=== PATIENT | male | born 1955 | race African-American/Black ===

== ENCOUNTER 2016-06-04 10:00 | Outpatient (RCR) | payer BC | END 2016-06-29 | disposition home or self-care (01) | LOC: WCC 10:00 | DX: E11.621 Type 2 diabetes mellitus with foot ulcer (principal); L97.523 Non-pressure chronic ulcer of other part of left foot with necrosis of muscle; I10 Essential (primary) hypertension; I50.9 Heart failure, unspecified; I73.9 Peripheral vascular disease, unspecified; J45.909 Unspecified asthma, uncomplicated; Z79.82 Long term (current) use of aspirin | CPT/HCPCS: 82962; G0277; G0463; 99204 ==

== ENCOUNTER → 2016-06-04 | Outpatient (CLI) | payer BC ==
--- NOTE | 2016-06-04 12:39 | Diagnostic Imaging Report ---
Indication: Cough Comparison: None 2 views of the chest obtained. No definite infiltrate or pulmonary vascular congestion identified. The heart is enlarged there is a pacemaker present. Single lead projects over the right ventricle. The bones are osteopenic. Impression: No acute disease
== END | disposition home or self-care (01) ==
LOC: RAD 11:59
DX: R05 Cough (principal)
CPT/HCPCS: 71020

== ENCOUNTER 2016-07-02 13:00 | Outpatient (RCR) | payer BC | END 2016-07-29 | disposition home or self-care (01) | LOC: WCC 13:00 | DX: L97.523 Non-pressure chronic ulcer of other part of left foot with necrosis of muscle (principal); E11.621 Type 2 diabetes mellitus with foot ulcer; Z91.018 Allergy to other foods; Z95.0 Presence of cardiac pacemaker; I10 Essential (primary) hypertension; I50.9 Heart failure, unspecified; I73.9 Peripheral vascular disease, unspecified; J45.909 Unspecified asthma, uncomplicated; Z79.4 Long term (current) use of insulin; Z79.82 Long term (current) use of aspirin | CPT/HCPCS: 82962; G0277; G0463 ==

== ENCOUNTER 2016-07-31 14:36 | Outpatient (RCR) | payer BC | END 2016-08-29 | disposition home or self-care (01) | LOC: WCC 14:36 | DX: L97.523 Non-pressure chronic ulcer of other part of left foot with necrosis of muscle (principal); E11.621 Type 2 diabetes mellitus with foot ulcer; I10 Essential (primary) hypertension; I50.9 Heart failure, unspecified; Z95.0 Presence of cardiac pacemaker; Z79.82 Long term (current) use of aspirin; Z79.4 Long term (current) use of insulin | CPT/HCPCS: 82962; G0463 ==

== ENCOUNTER 2017-09-10 07:28 | Day surgery (SDC) | payer MEDICARE, BC ==
[2017-09-10] VITALS (7 sets, daily range): BP systolic 140–146; BP diastolic 78–96
[~2017-09-10] VITALS: Ht 185.4 cm; Wt 105.2 kg
[~2017-09-10 07:28] MED LIST: Proparacaine 0.5% Opth Soln 15ml LEFT EYE SCH
[2017-09-10] MEDS ORDERED: Tropicamide 1% Opth 15ml Soln ONE (08:21)
[2017-09-10] MEDS ORDERED: Phenylephrine 2.5% Op 2ml Soln ONE (08:21)
[2017-09-10] MEDS ORDERED: Cyclopentolate 1% Opth Sol 2ml ONE (08:21)
[2017-09-10] MEDS ORDERED: Proparacaine 0.5% Opth Soln 15ml ONE (08:22)
[2017-09-10] MEDS: Cyclopentolate 1% Opth Sol 2ml LEFT EYE SCH ×3 (08:28→08:49)
[2017-09-10] MEDS: Phenylephrine 2.5% Op 2ml Soln LEFT EYE SCH ×3 (08:29→08:49)
[2017-09-10] MEDS: Tropicamide 1% Opth 15ml Soln LEFT EYE SCH ×3 (08:29→08:49)
[2017-09-10] MEDS ORDERED: CARVEDILOL6.25 MG ORAL (09:07)
[2017-09-10] MEDS ORDERED: METOLAZONE2.5 MG PO (09:07)
[2017-09-10] MEDS ORDERED: TRUSOPT10 ML BOTH EYES (09:07)
[2017-09-10] MEDS ORDERED: VITAMIN D22000 UNIT PO (09:07)
[2017-09-10] MEDS ORDERED: PROVENTIL HFA6.7 G1 IH (09:07)
[2017-09-10] MEDS ORDERED: LANTUS SOL100 UNIT/1 SUBQ (09:07)
[2017-09-10] MEDS ORDERED: PROAIR HFA8.5 GM INH (09:07)
[2017-09-10] MEDS ORDERED: ATORVASTATIN CA80 MG ORAL (09:07)
[2017-09-10] MEDS ORDERED: AMLODIPINE BESYL5 MG ORAL (09:07)
[2017-09-10] MEDS ORDERED: BUMETANIDE1 MG ORAL (09:07)
[2017-09-10] MEDS ORDERED: GABAPENTIN300 MG ORAL (09:07)
[2017-09-10] MEDS ORDERED: EPINEPHrine 1mg/1ml Amp ONE (09:56)
[2017-09-10] MEDS ORDERED: Lidocaine 2% MPF 5ml Vial INJ ONE (09:56)
--- NOTE | 2017-09-10 09:56 | Pre-Procedure Note/Attestation ---
Pre-Procedure Note/Attestation Complete Prior to Procedure Planned Procedure: left Procedure Narrative: PDR/VH/TRD/Cataract OS planned for surgery Indications for Procedure Pre-Operative Diagnosis: PDR/VH/TRD/Cataract OS Attestation I attest that I discussed the nature of the procedure; its benefits; risks and complications; and alternatives (and the risks and benefits of such alternatives ), prior to the procedure, with the patient (or the patient's legal technical service representative). I attest that, if there was a reasonable possibility of needing a blood transfusion, the patient (or the patient's legal technical service representative) was given the [facility] of Health Services standardized written summary, pursuant to the Brian Jack Blood Safety Act ([place] Health and Safety Code # 1645, as amended). I attest that I re-evaluated the patient just prior to the surgery and that there has been no change in the patient's H&P, except as documented below: Derek Duenas M.D., MD Sep 10, 2017 09:56
[2017-09-10] MEDS ORDERED: Dexamethasone 4mg/ml vial ONE ×2 (09:57→10:44)
[2017-09-10] MEDS ORDERED: BSS 15ml BTL ONE ×2 (09:57→10:38)
[2017-09-10] MEDS ORDERED: Maxitrol Opth Oint 3.5gm ONE (09:57)
[2017-09-10] MEDS ORDERED: Pred Forte 1% Opth Susp 1ml ONE (09:57)
[2017-09-10] MEDS ORDERED: Tetracaine 0.5% Opth 4ml Soln ONE (09:57)
[2017-09-10] MEDS ORDERED: BSS 500ml btl ONE ×2 (09:57→10:47)
[2017-09-10] MEDS ORDERED: Bupivacaine 0.75% 30ml vial INJ ONE (09:58)
--- NOTE | 2017-09-10 09:58 | Operative Note - PDOC ---
Operative Note Operative Note Chief Complaint: Vision loss OS Pre-op Diagnosis: PDR/VH/TRD/Cataract OS Procedure: PPV/MP/EL/AFE/SF6 Gas OS Post-op Diagnosis: Same Post-op Diagnosis: same as pre-op Surgeon: Henrique Anesthesia: local, MAC Specimen: none Complications: none Condition: stable Estimated Blood Loss: minimal Drains: none Implant(s) used?: Yes - Silicone oil Indications for Procedure Location: [facility] [place] Pre-operative Diagnosis: 1. PDR, ERM/TRD, VH, Cataract, LEFT EYE Post-operative Diagnosis: Same Procedure: Pars plana vitrectomy, ILM/membrane peel, endolaser, air-fluid exchange, silicone oil (1K cS), LEFT EYE Indications for the procedure: The patient has vision loss due ERM, VH, TRD and presents today for surgery after review of the risks, benefits, alternative and signing informed consent into the medical chart. Description of Procedure Procedure performed: The patient was met in the pre-operative area where informed consent was reviewed. The operative eye was verified, marked and dilated. The patient was transferred to the operative suite, where cardiopulmonary monitoring was established and peribulbar anesthetic was administered without complications. The eye was prepped and draped in sterile ophthalmic fashion. Under microscope visualization the 23 gauge infusion line was placed 4 millimeters inferotemporally. After visualization of the tip in the vitreous cavity, the infusion line was turned on. The superotemporal and superonasal cannulas were placed. Under BIOM visualization, peripheral and core vitrectomy was performed. There was notable vitreous traction involving the temporal, superior macula and nasal traction with elevation and detachment. As the vitreous hemorrhage was removed , the membranes were relaxed. Kenalog was used to stain the hyloid and PVD was induced over the disc; the areas of tractional detachment were trimmed. Hemostasis from areas of NVD/NVE was achieved by IOP elevation. Endolaser was them applied around the posterior areas of TRD and extended to the periphery under scleral depression. There was notable cataract present. The macula was stained with ICG and the ERM was removed with ILM forceps. Air fluid exchange was performed and further peripheral laser was applied. Inspection of the periphery revealed Inferotemporal break which was reinforced with laser. The eye maintained normal intraocular pressure. Silicone oil was then infused. Subconjunctival vancomycin and dexamethasone were administered. The lid speculum was removed. The eye was cleaned of prep and drape. Atropine drop and Maxitrol ointment was applied. A pressure patch was placed. The patient was turned over to the anesthesia team and transferred in stable condition to the PACU. Derek Duenas M.D., MD Sep 10, 2017 09:58
--- NOTE | 2017-09-10 10:07 | Anethesia Preoperative Eval ---
Anesthesia Pre-op PMH/ROS General Date of Evaluation: Sep 10, 2017 Time of Evaluation: 09:40 Anesthesiologist: ASA Score: ASA 4 Mallampati Score Class I : Soft palate, uvula, fauces, pillars visible Class II: Soft palate, uvula, fauces visible Class III: Soft palate, base of uvula visible Class IV: Only hard plate visible Mallampati Classification: Class III Surgeon: manan Diagnosis: vascular perliforation left eye Surgical Procedure: vitractomy, membrane peel, laser, gas injection left eye Anesthesia History: other - hypotension;.case cancelled during cervical spine surgery last year Allergies: Coded Allergies: LISINOPRIL (Verified Adverse Reaction, Severe, 09/10/17) COUGHING Medications: see eMAR Past Medical History Cardiovascular: Reports: HTN, CAD, other - chf, cardiomoypathy EF 25%; Denies: NM, valve dz, arrhythmia Pulmonary: Reports: asthma, RU; Denies: COPD, other Gastrointestinal/Genitourinary: Reports: GERD, CRI; Denies: ESRD, other Neurologic/Psychiatric: Reports: depression/anxiety; Denies: dementia, CVA, TIA, other Endocrine: Reports: DM; Denies: hypothyroidism, steroids, other HEENT: Reports: other - perliforative diabetes effecting left eye Musculoskeletal/Integumentary: Reports: OA Other: obesity PSxH Narrative: cervical spine Anesthesia Pre-op Phys. Exam Physician Exam Last Vital Signs Date Time Temp Pulse Resp B/P (MAP) Pulse Ox O2 Delivery O2 Flow Rate FiO2 09/10/17 08:43 97.5 77 16 144/89 97 Room Air 97.5 Constitutional: other - mild all body discomfort, breathing feel okay per patient Neurologic: other - uses walker to ambulate, unabt to flex/extend neck Cardiovascular: RRR Respiratory: CTA Gastrointestinal: other - distented Airway Exam Mallampati Score: Class IV MO: full ROM: limited Teeth: missing Dentures: no upper, no lower Anesthesia Pre-op A/P Risk Assessment & Plan Assessment: asa 4 Plan: mac Status Change Before Surgery: No Pre-Antibiotics Drug: none Leonela Preston M.D. Sep 10, 2017 10:07
[2017-09-10] MEDS ORDERED: Kenalog-40 1ml Vial ONE (10:08)
[2017-09-10] MEDS ORDERED: Acetylcholine Injection (OR) ONE (10:08)
[2017-09-10] MEDS ORDERED: Povidone-Iodine 5% opth solution ONE ×2 (10:18→10:44)
[2017-09-10] MEDS ORDERED: Goniosol 2.5% Opth Soln - 15ml ONE (10:36)
[2017-09-10] MEDS ORDERED: Indocyanine Green 25mg Inj INJ ONE (11:00)
[2017-09-10] MEDS ORDERED: Sodium Hyaluronate 10 mg/ml 0.85ml ONE (11:31)
--- NOTE | 2017-09-10 12:18 | Immediate Post-Op Evaluation ---
Immediate Post-Op Evalulation Immediate Post-Op Evalulation Procedure: Vitrectomy, membrane peel, endolaser, oil injection left eye Date of Evaluation: Sep 10, 2017 Time of Evaluation: 12:04 IV Fluids: NS 10ml Blood Products: 0 Estimated Blood Loss: 0 Urinary Output: 0 Blood Pressure Systolic: 146 Blood Pressure Diastolic: 89 Pulse Rate: 84 Respiratory Rate: 23 O2 Sat by Pulse Oximetry: 96 Temperature (Fahrenheit): 97.8 Nausea: No Vomiting: No Complications none Patient Status: awake, patent, none Hydration Status: adequate Drug: none Leonela Preston M.D. Sep 10, 2017 12:18
--- NOTE | 2017-09-10 13:42 | 48 Hour Post Anesthesia Eval ---
Post Anesthesia Evaluation Procedure: Vitrectomy, membrane peel, endolaser, oil injection left eye Date of Evaluation: Sep 10, 2017 Time of Evaluation: 12:40 Blood Pressure Systolic: 146 0: 78 Pulse Rate: 82 Respiratory Rate: 20 Temperature (Fahrenheit): 97.8 O2 Sat by Pulse Oximetry: 96 Airway: patent Nausea: No Vomiting: No Pain Intensity: 0 Hydration Status: adequate Mental Status/LOC: patient returned to baseline Post-Anesthesia Complications: none Follow-up care needed: ready to discharge Leonela Preston M.D. Sep 10, 2017 13:42
== END 2017-09-10 13:00 | disposition home or self-care (01) ==
LOC: SUR 07:28
DX: E11.3513 Type 2 diabetes mellitus with proliferative diabetic retinopathy with macular edema, bilateral (principal); H35.373 Puckering of macula, bilateral; E11.36 Type 2 diabetes mellitus with diabetic cataract; I50.9 Heart failure, unspecified; G47.33 Obstructive sleep apnea (adult) (pediatric); K21.9 Gastro-esophageal reflux disease without esophagitis; I13.0 Hypertensive heart and chronic kidney disease with heart failure and stage 1 through stage 4 chronic kidney disease, or unspecified chronic kidney disease; E11.22 Type 2 diabetes mellitus with diabetic chronic kidney disease; N18.9 Chronic kidney disease, unspecified; M19.90 Unspecified osteoarthritis, unspecified site; H43.12 Vitreous hemorrhage, left eye
CPT/HCPCS: 67040; 67042; 82962; J1100; J3301; J3370; J3490; 94003; 94150

== ENCOUNTER 2017-11-12 08:31 | Day surgery (SDC) | payer MEDICARE, BC ==
[~2017-11-12] VITALS: Ht 185.4 cm; Wt 99.8 kg
[2017-11-12] VITALS (9 sets, daily range): BP systolic 126–159; BP diastolic 72–87
[~2017-11-12 08:31] MED LIST changes: +AMLODIPINE BESYL5 MG ORAL; +ATORVASTATIN CA80 MG ORAL; +BUMETANIDE1 MG ORAL; +CARVEDILOL6.25 MG ORAL; +GABAPENTIN300 MG ORAL; +LANTUS SOL100 UNIT/1 SUBQ; +METOLAZONE2.5 MG PO; +PROAIR HFA8.5 GM INH; +PROVENTIL HFA6.7 G1 IH; -Proparacaine 0.5% Opth Soln 15ml LEFT EYE SCH; +TRUSOPT10 ML BOTH EYES; +VITAMIN D22000 UNIT PO
[2017-11-12] MEDS ORDERED: Tropicamide 1% Opth 15ml Soln ONE (08:43)
[2017-11-12] MEDS ORDERED: Cyclopentolate 1% Opth Sol 2ml ONE (08:43)
[2017-11-12] MEDS ORDERED: Phenylephrine 2.5% Op 2ml Soln ONE (08:43)
[2017-11-12] MEDS ORDERED: Proparacaine 0.5% Opth Soln 15ml ONE (08:44)
[2017-11-12 09:29] LABS: EOSINOPHILS % (AUTO) 1.2 % (0.0-3.0); HEMATOCRIT 42.4 % (42.0-52.0); HEMOGLOBIN 14.4 G/DL (14.2-18.0); LYMPHOCYTES % (AUTO) 14.3 % (20.0-45.0); MEAN CORPUSCULAR VOLUME 82 FL (80-99); MONOCYTES % (AUTO) 7.4 % (1.0-10.0); PLATELET COUNT 106 K/UL (150-450); RED BLOOD COUNT 5.16 M/UL (4.70-6.10); RED CELL DISTRIBUTION WIDTH 12.6 % (11.6-14.8); WHITE BLOOD COUNT 5.7 K/UL (4.8-10.8)
[2017-11-12 09:38] LABS: ANION GAP 8 mmol/L (5-15); BLOOD UREA NITROGEN 36 mg/dL (7-18); CALCIUM 9.3 MG/DL (8.5-10.1); CARBON DIOXIDE 23 MMOL/L (21-32); CHLORIDE 100 MMOL/L (98-107); POTASSIUM 3.6 MMOL/L (3.5-5.1); SODIUM 131 MMOL/L (136-145)
[2017-11-12] MEDS ORDERED: Phenylephrine 2.5% Op 2ml Soln LEFT EYE SCH (09:45)
[2017-11-12] MEDS ORDERED: Proparacaine 0.5% Opth Soln 15ml LEFT EYE ONE ×2 (09:45)
[2017-11-12] MEDS ORDERED: Cyclopentolate 1% Opth Sol 2ml LEFT EYE SCH (09:45)
[2017-11-12] MEDS ORDERED: Tropicamide 1% Opth 15ml Soln LEFT EYE SCH (09:45)
[2017-11-12] MEDS: Tropicamide 1% Opth 15ml Soln LEFT EYE SCH ×3 (09:51→10:07)
[2017-11-12] MEDS: Cyclopentolate 1% Opth Sol 2ml LEFT EYE SCH ×3 (09:51→10:06)
[2017-11-12] MEDS: Phenylephrine 2.5% Op 2ml Soln LEFT EYE SCH ×3 (09:52→10:07)
[2017-11-12] MEDS ORDERED: HUMALOG 10 UNIT SUBQ (10:12)
[2017-11-12] MEDS ORDERED: Insulin Human Regular 100units/ml 3ml IV ONE (10:30)
[2017-11-12] MEDS ORDERED: Indocyanine Green 25mg Inj INJ ONE (10:30)
[2017-11-12] MEDS ORDERED: Carbachol 0.01% Op Soln 1.5ml vial ONE (11:45)
[2017-11-12] MEDS ORDERED: EPINEPHrine 1mg/1ml Amp ONE (11:45)
[2017-11-12] MEDS ORDERED: Lidocaine 2% MPF 5ml Vial INJ ONE (11:45)
[2017-11-12] MEDS ORDERED: Kenalog-40 1ml Vial ONE (11:45)
[2017-11-12] MEDS ORDERED: Goniosol 2.5% Opth Soln - 15ml ONE (11:46)
[2017-11-12] MEDS ORDERED: Pred Forte 1% Opth Susp 1ml ONE (11:47)
[2017-11-12] MEDS ORDERED: Dexamethasone 4mg/ml vial ONE (11:47)
[2017-11-12] MEDS ORDERED: Tetracaine 0.5% Opth 4ml Soln ONE (11:48)
[2017-11-12] MEDS ORDERED: Bupivacaine 0.75% 30ml vial INJ ONE (11:48)
[2017-11-12] MEDS ORDERED: BSS 500ml btl ONE (11:48)
[2017-11-12] MEDS ORDERED: Sodium Hyaluronate 10 mg/ml 0.85ml ONE (11:48)
[2017-11-12] MEDS ORDERED: BSS 15ml BTL ONE (11:48)
[2017-11-12] MEDS ORDERED: Povidone-Iodine 5% opth solution ONE (11:48)
[2017-11-12] MEDS ORDERED: LR 1000ml 1,000 ML IVLG SCH (11:53)
--- NOTE | 2017-11-12 11:59 | Immediate Post-Op Evaluation ---
Immediate Post-Op Evalulation Immediate Post-Op Evalulation Procedure: Vitrectomy left eye Date of Evaluation: Nov 12, 2017 Time of Evaluation: 13:25 IV Fluids: 700 Blood Pressure Systolic: 159 Blood Pressure Diastolic: 87 Pulse Rate: 85 Respiratory Rate: 16 O2 Sat by Pulse Oximetry: 99 Temperature (Fahrenheit): 97.5 Pain Score (1-10): 0 Nausea: No Vomiting: No Complications No complications Patient Status: awake, patent, none Hydration Status: adequate Drug: None Brian Coyle MD Nov 12, 2017 11:59
--- NOTE | 2017-11-12 11:59 | Anethesia Preoperative Eval ---
Anesthesia Pre-op PMH/ROS General Date of Evaluation: Nov 12, 2017 Time of Evaluation: 11:30 Anesthesiologist: Jonna ASA Score: ASA 3 Mallampati Score Class I : Soft palate, uvula, fauces, pillars visible Class II: Soft palate, uvula, fauces visible Class III: Soft palate, base of uvula visible Class IV: Only hard plate visible Mallampati Classification: Class III Surgeon: Henrique Diagnosis: Epiretinal membrane vitreous hemorrhage left eye Surgical Procedure: Vitrectomy, silicone oil removal Family History: no anesthesia problems Allergies: Coded Allergies: LISINOPRIL (Verified Adverse Reaction, Severe, 09/10/17) COUGHING Medications: see eMAR Past Medical History Cardiovascular: Reports: HTN, other - CHF; Denies: CAD, MA, valve dz, arrhythmia Pulmonary: Reports: asthma, RU; Denies: COPD, other Gastrointestinal/Genitourinary: Reports: CRI; Denies: GERD, ESRD, other Neurologic/Psychiatric: Denies: dementia, CVA, depression/anxiety, TIA, other Endocrine: Reports: DM; Denies: hypothyroidism, steroids, other Hematology/Immune: Denies: anemia, DVT, bleeding disorder, other Musculoskeletal/Integumentary: Denies: OA, RA, DJD, DDD, edema, other Other: obesity PMH Narrative: HTN, CHF, asthma, RU, obesity, DM, CRI PSxH Narrative: Lumbar surgery Anesthesia Pre-op Phys. Exam Physician Exam Last Vital Signs Date Time Temp Pulse Resp B/P (MAP) Pulse Ox O2 Delivery O2 Flow Rate FiO2 11/12/17 09:13 98.1 76 20 133/86 (102) 100 98.1 11/12/17 09:07 Room Air Constitutional: NAD Neurologic: CN 2-12 intact Cardiovascular: RRR, no M/R/G Respiratory: CTA Gastrointestinal: S/NT/ND Airway Exam Mallampati Score: Class III MO: full ROM: full Teeth: intact Anesthesia Pre-op A/P Labs Hematology Test 11/12/17 09:15 White Blood Count 5.7 K/UL (4.8-10.8) Red Blood Count 5.16 M/UL (4.70-6.10) Hemoglobin 14.4 G/DL (14.2-18.0) Hematocrit 42.4 % (42.0-52.0) Mean Corpuscular Volume 82 FL (80-99) Mean Corpuscular Hemoglobin 27.9 PG (27.0-31.0) Mean Corpuscular Hemoglobin Concent 33.9 G/DL (32.0-36.0) Red Cell Distribution Width 12.6 % (11.6-14.8) Platelet Count 106 K/UL (150-450) L Mean Platelet Volume 9.0 FL (6.5-10.1) Neutrophils (%) (Auto) 76.0 % (45.0-75.0) H Lymphocytes (%) (Auto) 14.3 % (20.0-45.0) L Monocytes (%) (Auto) 7.4 % (1.0-10.0) Eosinophils (%) (Auto) 1.2 % (0.0-3.0) Basophils (%) (Auto) 1.0 % (0.0-2.0) Chemistry Test 11/12/17 09:15 Sodium Level 131 MMOL/L (136-145) L Potassium Level 3.6 MMOL/L (3.5-5.1) Chloride Level 100 MMOL/L (98-107) Carbon Dioxide Level 23 MMOL/L (21-32) Anion Gap 8 mmol/L (5-15) Blood Urea Nitrogen 36 mg/dL (7-18) H Creatinine 2.0 MG/DL (0.55-1.30) H Estimat Glomerular Filtration Rate 41.6 mL/min (>60) Glucose Level 358 MG/DL (74-106) H Calcium Level 9.3 MG/DL (8.5-10.1) Studies Pre-op Studies: EKG - SR Risk Assessment & Plan Assessment: Class 3 patient with multiple organ diseases now for vitrectomy left eye Plan: MAC Status Change Before Surgery: No Pre-Antibiotics Drug: None Brian Coyle MD Nov 12, 2017 11:59
[2017-11-12] MEDS ORDERED: fentaNYL 100 mcg/2 mL IV PRN (12:00)
--- NOTE | 2017-11-12 12:25 | Pre-Procedure Note/Attestation ---
Pre-Procedure Note/Attestation Complete Prior to Procedure Planned Procedure: left Procedure Narrative: PPV/SOR/EL/AFE OS Indications for Procedure Pre-Operative Diagnosis: PDR/SO/IOP elevation Attestation I attest that I discussed the nature of the procedure; its benefits; risks and complications; and alternatives (and the risks and benefits of such alternatives ), prior to the procedure, with the patient (or the patient's legal customer support representative). I attest that, if there was a reasonable possibility of needing a blood transfusion, the patient (or the patient's legal customer support representative) was given the [facility] of Health Services standardized written summary, pursuant to the Brian Larwill Blood Safety Act ([place] Health and Safety Code # 1645, as amended). I attest that I re-evaluated the patient just prior to the surgery and that there has been no change in the patient's H&P, except as documented below: Derek Duenas M.D., MD Nov 12, 2017 12:25
--- NOTE | 2017-11-12 12:26 | Operative Note - PDOC ---
Operative Note Operative Note Date of Operation/Procedure: Nov 12, 2017 Pre-op Diagnosis: PDR/VH/Glaucoma Cataract, LEFT EYE Procedure: Pars plana vitrectomy,SO removal, endolaser, air-fluid exchange, SF6 (20%), LEFT EYE Post-op Diagnosis: same as pre-op Anesthesia: local Specimen: none Complications: none Condition: stable Estimated Blood Loss: minimal Drains: none Implant(s) used?: No Indications for Procedure The patient has elevated IOP despite medical management with silicone oil in the eye along with recurrent VH; he presents today for surgery after review of the risks, benefits, alternative and signing informed consent into the medical chart. Description of Procedure Procedure performed: The patient was met in the pre-operative area where informed consent was reviewed. The operative eye was verified, marked and dilated. The patient was transferred to the operative suite, where cardiopulmonary monitoring was established and peribulbar anesthetic was administered without complications. The eye was prepped and draped in sterile ophthalmic fashion. Under microscope visualization the 23 gauge infusion line was placed 4 millimeters inferotemporally. After visualization of the tip in the vitreous cavity, the infusion line was turned on. The superotemporal and superonasal cannulas were placed; ST opened to 20 gauge with angiocatheter to removal the silicone oil. Under BIOM visualization, there was reattachment of the retina, however, active hemorrhage was noted nasally. Endolaser was them applied around nasal area of active hemorrhage and further PRP was completed. There was notable cataract present. Air fluid exchange was performed and further peripheral laser was applied. SF6 gas was then infused. The sclerotomies were sutured and the eye maintained normal intraocular pressure. Subconjunctival vancomycin and dexamethasone were administered. The lid speculum was removed. The eye was cleaned of prep and drape. Atropine drop and Maxitrol ointment was applied. A pressure patch was placed. The patient was turned over to the anesthesia team and transferred in stable condition to the PACU. Derek Duenas M.D., MD Nov 12, 2017 12:26
--- NOTE | 2017-11-12 13:20 | 48 Hour Post Anesthesia Eval ---
Post Anesthesia Evaluation Procedure: Vitrectomy left eye Date of Evaluation: Nov 12, 2017 Time of Evaluation: 14:00 Blood Pressure Systolic: 157 0: 84 Pulse Rate: 82 Respiratory Rate: 18 O2 Sat by Pulse Oximetry: 99 Airway: patent Nausea: No Vomiting: No Pain Intensity: 0 Hydration Status: adequate Cardiopulmonary Status: Stable Mental Status/LOC: patient returned to baseline Follow-up Care/Observations: As per surgery Post-Anesthesia Complications: No anesthetic complication Follow-up care needed: N/A Brian Coyle MD Nov 12, 2017 13:20
--- NOTE | 2017-11-12 21:46 | Pre-op HX & Phy Repo 2 SIG ---
DATE OF ADMISSION: 11/12/2017 REASON FOR EVALUATION: I was asked by Dr. Derek Delgado to see this 62-year-old male who is going for elective surgery of the left eye. The patient was evaluated. Chart was reviewed. PAST MEDICAL HISTORY/REVIEW OF SYSTEMS: Remarkable for congestive heart failure, long-standing, with ejection fraction of 30. Denies history of heart attack. He has a history of hypertension. The patient has a history of permanent pacemaker and defibrillator implant in 2013, has a history of bronchial asthma. No history of heartburn or ulcer disease. No hepatitis. Denies history of thyroid problem. No history of anemia. The patient has history of peripheral neuropathy secondary to diabetes and history of bronchial asthma from childhood. He uses inhalers, but not oxygen and oxygen saturation was 100% today. He has history of chronic renal insufficiency. GFR today shows 46 mL per minute. PAST SURGICAL HISTORY: Remarkable for eye surgery, surgery on the cervical spine, stabilization with titanium rods, and permanent pacemaker with defibrillator in 2013. ALLERGY: To lisinopril, cough. MEDICATIONS: Present medications include Bumex, Lantus 16 units at bedtime, NovoLog 10 units with each meal, vitamin D2, aspirin, Neurontin, atorvastatin, Coreg, Norvasc, and albuterol inhaler. FAMILY HISTORY: Mother alive, 86 years old, has diabetes and hypertension. Father was murdered years ago. PHYSICAL EXAMINATION: GENERAL: The patient is alert, well-developed and well-nourished male in his 60s. No acute distress. VITAL SIGNS: Blood pressure 137/82, temperature 98 degrees, pulse 76, respirations 20, and O2 saturation 100%. SKIN: No rashes. Left foot ulcers where the gel boots. HEENT: Head, normocephalic and atraumatic. Eyes, full description per Dr. Delgado. Mouth, clear and moist. No ulcer or discharge. No artificial tears. Ear, clear. NECK: Supple. No jugular venous distention. Carotids artery +2. Trachea midline. CHEST: Permanent pacemaker and defibrillator in left upper quadrant anterior chest. LUNGS: O2 saturation 100%. No rales or rhonchi. No wheezing. HEART: Sounds distant, regular, 76 per minute. No murmur. No S3 or S4. ABDOMEN: Soft. Obese. Liver and spleen not enlarged. No rebound. No palpable mass. EXTREMITIES: There is +1 ankle edema. Left foot ulcers. The patient boots. GENITOURINARY: No dysuria. No CVA tenderness. History of chronic kidney disease. NEUROLOGIC: Peripheral neuropathy. No tremor. No nystagmus. LABORATORY AND DIAGNOSTIC DATA: Electrocardiogram from 09/10/2017, sinus rhythm with first-degree AV block, low voltage, low QRS. The patient did not eat after midnight. Today's blood sugar this morning 356. Laboratory, potassium 3.6, GFR 46 mL per minute. CBC, white blood cells 5.7, hemoglobin 14.4, and hematocrit 42.4. Sodium 131, potassium 3.6, chloride 100, BUN 36, creatinine 2.0, glucose 258, and calcium 9.3. IMPRESSION: 1. Epiretinal membrane traction retinal detachment, vitreous hemorrhage, left eye. 2. Insulin-dependent diabetes mellitus. 3. Hypertension, controlled. 4. Permanent pacemaker and defibrillator. 5. Congestive heart failure, stage 3-4. 6. Chronic kidney disease, stage 3, peripheral neuropathy and diabetic neuropathy. 7. Bronchial asthma, controlled. 8. Left foot diabetic ulcers. TREATMENT PLAN: Pars plana vitrectomy, silicone oil removal. Air-fluid exchange, left eye per Dr. Derek Delgado. CONCLUSION: Due to high blood sugar this morning, we gave the patient 10 units of NovoLog regular IV push at 10:25. At 11 o'clock, I checked blood sugar and it shows 212 mg/dL. The patient's vital signs are stable. O2 saturation is normal. The patient's congestive heart failure is controlled. There is no chest pain or palpitation. The patient's laboratory checked. His hemoglobin 14.4, white blood cells 5.7, and potassium 3.6. The patient's condition optimized for surgery. He did not eat or drink from last night. Thank you very much, Dr. Delgado, for the privilege to participate in the presurgical care of this interesting patient. Ariadna Kang M.D. DR: FEI JOB#: [id number] CC:
== END 2017-11-12 16:20 | disposition home or self-care (01) ==
LOC: SUR 08:31
DX: H33.42 Traction detachment of retina, left eye (principal); H43.12 Vitreous hemorrhage, left eye; H35.81 Retinal edema; H40.9 Unspecified glaucoma; H26.9 Unspecified cataract; I13.0 Hypertensive heart and chronic kidney disease with heart failure and stage 1 through stage 4 chronic kidney disease, or unspecified chronic kidney disease; I50.9 Heart failure, unspecified; N18.3 Chronic kidney disease, stage 3 (moderate); E11.22 Type 2 diabetes mellitus with diabetic chronic kidney disease; Z79.4 Long term (current) use of insulin; H53.2 Diplopia; G47.33 Obstructive sleep apnea (adult) (pediatric); J45.909 Unspecified asthma, uncomplicated; E11.42 Type 2 diabetes mellitus with diabetic polyneuropathy; E66.9 Obesity, unspecified; E11.621 Type 2 diabetes mellitus with foot ulcer; Z95.810 Presence of automatic (implantable) cardiac defibrillator; Z88.8 Allergy status to other drugs, medicaments and biological substances
CPT/HCPCS: 36415; 67108; 80048; 82962; 85025; J0360; J1100; J3370; J3490; 94003; 94150